=== PATIENT | male | born 1935 | race Caucasian/White ===

== ENCOUNTER 2016-12-26 21:04 | Inpatient (IN) | payer OTHER ==
[~2016-12-26] VITALS: Ht 167.6 cm; Wt 60.8 kg
[~2016-12-26 21:04] MED LIST: ACIDOPHILUS100 M1 PO; ASPIR 8181 M1 PO; CALCARB 600 W-1 EACH PO; CARVEDILOL12.5 MG PO; CARVEDILOL6.25 MG PO; CEFTRIAXON1 GM/50 M1 IV; COLACE10 MG/ML PO; DULCOLAX10 MG PR; DULCOLAX5 MG PO; DUONEB 2.5-0.5 M3 ML IPPB; EFFEXOR XR37.5 MG PO; FERROUS SULFAT325 MG PO; FLEET MINERAL133 ML PR; KLOR-CON M2020 MEQ PO; LIDOCAINE700 MG TD; LISINOPRIL10 MG PO; METHOCARBAMOL500 MG PO; MILK OF MAGN PO; NABI650T PO; OXYCODONE HCL10 MG PO; OXYCODONE HCL5 MG PO; PRAVACHOL80 MG PO; REMERON15 M2 PO; SENNA PLUS TAB1 EACH PO; SODIUM BICARBO325 MG PO; SPIRIVA1 INHALATI IH; TAMSULOSIN HCL0.4 MG PO; TEFLARO600 MG IM; TYLENOL REGULA325 MG PO; VENLAFAXINE HCL75 M3 PO; VENTOLIN HFA18 GM IH; VITAMIN B122500 MCG PO
[2016-12-26 22:35] LABS: BASOPHIL COUNT 0.1 K/uL (0-0.1); EOSINOPHIL (%) 1.2 % (0-5); EOSINOPHIL COUNT 0.1 K/uL (0-0.3); IMMATURE GRANULOCYTE (%) 0.1 % (0.0-0.7); IMMATURE GRANULOCYTE COUNT 0.1 K/uL; LYMPHOCYTE COUNT 0.8 K/uL (1.0-2.8); MCH 29.9 PG (29.0-34.0); MCHC 32.1 G/DL (30.0-36.0); MCV 93.2 FL (86-99); MEAN PLAT.VOLUME 10.6 uM^3 (9.0-12.4); MONOCYTE (%) 8.6 % (3-12); MONOCYTE COUNT 0.7 K/uL (0-0.8); NEUTROPHIL (%) 78.6 % (45-76); NEUTROPHIL COUNT 6.1 K/uL (1.8-6.4); PLATELET COUNT 245 K/uL (156-360); RBC DIS.WIDTH-CV 15.9 % (11.8-14.6); RBC DIS.WIDTH-SD 51.4 % (39-53); RED BLOOD COUNT 3.11 M/uL (4.00-5.50); WHITE BLOOD COUNT 7.7 K/uL (4.1-10.2)
[2016-12-26 22:46] LABS: CHLORIDE 106 mEq/L (99-109); POTASSIUM 4.8 mEq/L (3.7-5.4); SODIUM 136 mEq/L (136-147)
[2016-12-26 22:48] LABS: GLUCOSE 99 mg/dL (70-99)
[2016-12-26 22:49] LABS: ANION GAP 11 MEQ/L (2-14)
[2016-12-26 22:52] LABS: GFR ESTIMATE (CALCULATED) 37 mL/min/
[2016-12-26 22:53] LABS: UREA NITROGEN (BUN) 27 mg/dL (9-23)
[2016-12-26] MEDS ORDERED: REMERON15 M1 PO (23:34)
[2016-12-26] MEDS ORDERED: B-12500 MC1 SL (23:35)
[2016-12-26] MEDS ORDERED: TYLENOL EXTRA500 MG PO (23:36)
[2016-12-26] MEDS ORDERED: SYMBICORT60 INHALAT IH (23:37)
[2016-12-26] MEDS ORDERED: VITAMIN D31000 UNI2 PO (23:37)
[2016-12-27 01:08] LABS: POINT-OF-CARE METER ID UU13113747
[2016-12-27 02:27] VITALS: BP 134/74
[2016-12-27 07:35] VITALS: BP 124/76
[2016-12-27 16:30] VITALS: BP 129/83
[2016-12-27 22:58] VITALS: BP 90/53
[2016-12-28 06:56] LABS: ANION GAP 13 MEQ/L (2-14); CHLORIDE 106 MEQ/L (99-109); GFR ESTIMATE (CALCULATED) 33 mL/min/; GLUCOSE 102 mg/dL (70-99); POTASSIUM 4.3 MEQ/L (3.7-5.4); SAMPLE HEMOLYSIS CHECK 0; SAMPLE ICTERIC CHECK 0; SAMPLE LIPEMIA CHECK 0; SODIUM 138 MEQ/L (136-147); UREA NITROGEN (BUN) 30 mg/dL (9-23)
[2016-12-28 07:48] VITALS: BP 129/76
[2016-12-28 15:27] VITALS: BP 116/72
[2016-12-28 22:00] VITALS: BP 118/74
[2016-12-29 07:16] LABS: ALKALINE PHOSPHATASE 191 IU/L (3-129); ANION GAP 11 MEQ/L (2-14); CHLORIDE 106 MEQ/L (99-109); GFR ESTIMATE (CALCULATED) 33 mL/min/; GLUCOSE 130 mg/dL (70-99); POTASSIUM 4.6 MEQ/L (3.7-5.4); SAMPLE HEMOLYSIS CHECK 0; SAMPLE ICTERIC CHECK 0; SAMPLE LIPEMIA CHECK 0; SODIUM 137 MEQ/L (136-147); TOTAL BILIRUBIN 0.3 MG/DL (0.0-1.0); UREA NITROGEN (BUN) 35 mg/dL (9-23)
[2016-12-29 08:20] LABS: HEMATOCRIT 27.9 % (38.0-50.0); MCH 29.3 PG (29.0-34.0); MCHC 31.5 G/DL (30.0-36.0); MEAN PLAT.VOLUME 11.3 uM^3 (9.0-12.4); PLATELET COUNT 215 K/uL (156-360); RBC DIS.WIDTH-CV 16.5 % (11.8-14.6); RBC DIS.WIDTH-SD 55.7 % (39-53); WHITE BLOOD COUNT 7.2 K/uL (4.1-10.2)
[2016-12-29 09:34] VITALS: BP 144/83
[2016-12-29 15:04] VITALS: BP 121/64
[2016-12-29 22:47] VITALS: BP 114/70
[2016-12-30 07:26] VITALS: BP 121/79
[2016-12-30 07:36] LABS: ANION GAP 12 MEQ/L (2-14); CHLORIDE 107 MEQ/L (99-109); GFR ESTIMATE (CALCULATED) 37 mL/min/; GLUCOSE 143 mg/dL (70-99); MAGNESIUM 2.2 mg/dl (1.3-2.7); POTASSIUM 4.2 MEQ/L (3.7-5.4); SAMPLE HEMOLYSIS CHECK 0; SAMPLE ICTERIC CHECK 0; SAMPLE LIPEMIA CHECK 0; SODIUM 138 MEQ/L (136-147); TOTAL BILIRUBIN 0.3 MG/DL (0.0-1.0); UREA NITROGEN (BUN) 39 mg/dL (9-23); URIC ACID 8.6 mg/dL (3.1-9.2)
[2016-12-30 07:38] LABS: ALKALINE PHOSPHATASE 135 IU/L (3-129)
[2016-12-30 07:56] LABS: EOSINOPHIL (%) 0 % (0-5); IMMATURE GRANULOCYTE (%) 0.2 % (0.0-0.7); LYMPHOCYTE COUNT 0.2 K/uL (1.0-2.8); MCH 30.2 PG (29.0-34.0); MCHC 32.7 G/DL (30.0-36.0); MCV 92.5 FL (86-99); MEAN PLAT.VOLUME 11.5 uM^3 (9.0-12.4); MONOCYTE (%) 4.2 % (3-12); MONOCYTE COUNT 0.4 K/uL (0-0.8); NEUTROPHIL (%) 93.9 % (45-76); NEUTROPHIL COUNT 8.5 K/uL (1.8-6.4); PLATELET COUNT 181 K/uL (156-360); RBC DIS.WIDTH-CV 16.5 % (11.8-14.6); RBC DIS.WIDTH-SD 55.4 % (39-53); RED BLOOD COUNT 2.81 M/uL (4.00-5.50)
[2016-12-30 10:04] LABS: HPCA INDEX 0.12
[2016-12-30 11:23] LABS: UR CREATININE CONCENTRATION 61.4 MG/DL
[2016-12-30 15:56] VITALS: BP 112/58
[2016-12-30 23:08] VITALS: BP 139/77
[2016-12-31 17:02] VITALS: BP 138/85
[2016-12-31 23:31] VITALS: BP 113/72
[2017-01-01 06:59] LABS: HEMATOCRIT 28.6 % (38.0-50.0); MCH 30.2 PG (29.0-34.0); MCHC 32.5 G/DL (30.0-36.0); MCV 92.9 FL (86-99); MEAN PLAT.VOLUME 11.6 uM^3 (9.0-12.4); PLATELET COUNT 201 K/uL (156-360); RBC DIS.WIDTH-CV 16.6 % (11.8-14.6); RBC DIS.WIDTH-SD 55.7 % (39-53); RED BLOOD COUNT 3.08 M/uL (4.00-5.50)
[2017-01-01 07:01] LABS: WHITE BLOOD COUNT 11.9 K/uL (4.1-10.2)
[2017-01-01 07:25] LABS: ALKALINE PHOSPHATASE 103 IU/L (3-129); ANION GAP 8 MEQ/L (2-14); CHLORIDE 109 MEQ/L (99-109); GFR ESTIMATE (CALCULATED) 48 mL/min/; POTASSIUM 4.3 MEQ/L (3.7-5.4); SAMPLE HEMOLYSIS CHECK 0; SAMPLE ICTERIC CHECK 0; SAMPLE LIPEMIA CHECK 0; SODIUM 138 MEQ/L (136-147); UREA NITROGEN (BUN) 38 mg/dL (9-23)
[2017-01-01 07:27] LABS: GLUCOSE 101 mg/dL (70-99); TOTAL BILIRUBIN 0.4 MG/DL (0.0-1.0)
[2017-01-01 07:45] VITALS: BP 110/65
[2017-01-01 16:00] VITALS: BP 134/79
[2017-01-01 18:48] LABS: INTER. NORMALIZED RATIO 1.2; PROTHROMBIN TIME 12.7 (9.2-11.2); PTT 27.1 (25-32)
[2017-01-01 23:26] VITALS: BP 131/67
[2017-01-02 07:33] LABS: ALKALINE PHOSPHATASE 88 IU/L (3-129); ANION GAP 9 MEQ/L (2-14); CHLORIDE 109 MEQ/L (99-109); GFR ESTIMATE (CALCULATED) 45 mL/min/; GLUCOSE 88 mg/dL (70-99); POTASSIUM 4.3 MEQ/L (3.7-5.4); SAMPLE HEMOLYSIS CHECK 0; SAMPLE ICTERIC CHECK 0; SAMPLE LIPEMIA CHECK 0; SODIUM 139 MEQ/L (136-147); TOTAL BILIRUBIN 0.4 MG/DL (0.0-1.0); UREA NITROGEN (BUN) 35 mg/dL (9-23)
[2017-01-02 07:45] LABS: LACTATE DEHYDROGENASE 215 IU/L (20-246)
[2017-01-02 09:11] VITALS: BP 150/90
[2017-01-02 09:17] LABS: TYPE OF FLUID THORACENTESIS
[2017-01-02 09:51] LABS: BODY FLUID RBC'S 1060 /MM^3 (0-100); BODY FLUID WBC'S 153 /MM^3 (0-500); RED CELL AREA COUNTED 2; RED CELL DILUTION 1; WBC AREA COUNTED 8; WBC DILUTION 1; WHITE CELL RAW COUNT 122
[2017-01-02 10:09] LABS: BODY FLUID LDH 58 IU/L; BODY FLUID PROTEIN < 3.0 G/DL
[2017-01-02 10:18] LABS: BODY FLUID EOSINOPHILS 0 % (0-25); MONO RAW COUNT 47; MONONUCLEAR WBC'S 47 %; POLY RAW COUNT 53; POLYNUCLEAR WBC'S 53 % (0-25)
[2017-01-02 16:48] VITALS: BP 146/89
[2017-01-02 23:18] VITALS: BP 130/66
[2017-01-03 07:22] VITALS: BP 135/87
[2017-01-03 09:45] LABS: ALKALINE PHOSPHATASE 93 IU/L (3-129); AMYLASE 43 IU/L (1-118); ANION GAP 11 MEQ/L (2-14); CHLORIDE 103 MEQ/L (99-109); DIRECT BILIRUBIN 0.1 mg/dL (0.0-0.3); GFR ESTIMATE (CALCULATED) 48 mL/min/; GLUCOSE 110 mg/dL (70-99); POTASSIUM 4.7 MEQ/L (3.7-5.4); SAMPLE HEMOLYSIS CHECK 0; SAMPLE ICTERIC CHECK 0; SAMPLE LIPEMIA CHECK 0; SODIUM 136 MEQ/L (136-147); TOTAL BILIRUBIN 0.4 MG/DL (0.0-1.0); UREA NITROGEN (BUN) 39 mg/dL (9-23)
[2017-01-03 15:48] VITALS: BP 129/72
[2017-01-03 15:49] VITALS: BP 129/72
[2017-01-03 22:55] VITALS: BP 90/50
[2017-01-04 06:54] LABS: ALKALINE PHOSPHATASE 74 IU/L (3-129); DIRECT BILIRUBIN 0.1 mg/dL (0.0-0.3); TOTAL BILIRUBIN 0.4 MG/DL (0.0-1.0)
[2017-01-04 07:08] LABS: GLOBULINS 2.2 G/DL (2.3-3.5)
[2017-01-04 07:25] VITALS: BP 117/72
[2017-01-04 16:49] VITALS: BP 117/75
[2017-01-04 22:56] VITALS: BP 103/57
[2017-01-05 07:20] VITALS: BP 121/70
[2017-01-05 07:39] LABS: EOSINOPHIL (%) 0.1 % (0-5); HEMATOCRIT 27.2 % (38.0-50.0); IMMATURE GRANULOCYTE (%) 0.1 % (0.0-0.7); LYMPHOCYTE COUNT 0.7 K/uL (1.0-2.8); MCHC 32.4 G/DL (30.0-36.0); MCV 92.8 FL (86-99); MEAN PLAT.VOLUME 11.4 uM^3 (9.0-12.4); MONOCYTE (%) 9.4 % (3-12); MONOCYTE COUNT 0.7 K/uL (0-0.8); NEUTROPHIL (%) 79.8 % (45-76); NEUTROPHIL COUNT 5.5 K/uL (1.8-6.4); PLATELET COUNT 207 K/uL (156-360); RBC DIS.WIDTH-CV 16.2 % (11.8-14.6); RBC DIS.WIDTH-SD 54.6 % (39-53); RED BLOOD COUNT 2.93 M/uL (4.00-5.50)
[2017-01-05 07:41] LABS: WHITE BLOOD COUNT 6.9 K/uL (4.1-10.2)
[2017-01-05 07:46] LABS: ALKALINE PHOSPHATASE 68 IU/L (3-129); ANION GAP 7 MEQ/L (2-14); CHLORIDE 106 MEQ/L (99-109); GFR ESTIMATE (CALCULATED) 48 mL/min/; GLUCOSE 90 mg/dL (70-99); POTASSIUM 4.3 MEQ/L (3.7-5.4); SAMPLE HEMOLYSIS CHECK 0; SAMPLE ICTERIC CHECK 0; SAMPLE LIPEMIA CHECK 0; SODIUM 137 MEQ/L (136-147); TOTAL BILIRUBIN 0.4 MG/DL (0.0-1.0); UREA NITROGEN (BUN) 30 mg/dL (9-23)
[2017-01-05] MEDS ORDERED: PREDNISONE10 MG PO (08:20)
[2017-01-05 10:56] LABS: HBSG INDEX 0.23
[2017-01-05 10:57] LABS: ANTI-HEPATITIS A VIRUS (IGM) Nonreactive; HAV INDEX 0.56
[2017-01-05 10:58] LABS: ANTI-HEPATITIS B CORE (IGM) Nonreactive; HBC IgM INDEX 0.08
[2017-01-05 14:17] LABS: ALBUMIN 3.02 G/DL (3.6-4.9); ALPHA-1 GLOBULIN 0.19 G/DL (0.15-0.40); ALPHA-1 PERCENT 3.6 %; ALPHA-2 GLOBULIN 0.64 G/DL (0.45-0.85); ALPHA-2 PERCENT 12.4 %; BETA PERCENT 9.9 %; GAMMA PERCENT 16.1 %
[2017-01-06 20:58] LABS: HCV RNA (IU/mL) <15 IU/mL (<15)
[2017-01-07 11:38] LABS: HCV RNA (LOG IU/mL) <1.18 (<1.18)
== END 2017-01-05 17:59 | disposition home health service (06) | DRG 190 ==
LOC: EME 21:04 → EDOF 23:57 → 5EAST 23:57
PROVIDERS: Emergency Medicine; Internal Medicine; Internal Medicine Nephrology; Internal Medicine Pulmonary Disease; Radiology Diagnostic Radiology; Specialist
PROC: 0B9N3ZZ Drainage of Right Pleura, Percutaneous Approach (ICD-10-PCS; principal; 2017-01-02)
DX: J44.1 Chronic obstructive pulmonary disease with (acute) exacerbation (principal); J15.9 Unspecified bacterial pneumonia; N17.0 Acute kidney failure with tubular necrosis; I50.30 Unspecified diastolic (congestive) heart failure; J90 Pleural effusion, not elsewhere classified; D61.9 Aplastic anemia, unspecified; I25.2 Old myocardial infarction; Z96.0 Presence of urogenital implants; G89.29 Other chronic pain; I12.9 Hypertensive chronic kidney disease with stage 1 through stage 4 chronic kidney disease, or unspecified chronic kidney disease; F32.9 Major depressive disorder, single episode, unspecified; F17.210 Nicotine dependence, cigarettes, uncomplicated; G30.9 Alzheimer's disease, unspecified; I25.10 Atherosclerotic heart disease of native coronary artery without angina pectoris; N18.3 Chronic kidney disease, stage 3 (moderate); F02.80 Dementia in other diseases classified elsewhere, unspecified severity, without behavioral disturbance, psychotic disturbance, mood disturbance, and anxiety; R79.89 Other specified abnormal findings of blood chemistry; J44.0 Chronic obstructive pulmonary disease with (acute) lower respiratory infection; K80.20 Calculus of gallbladder without cholecystitis without obstruction
CPT/HCPCS: 71020; 74183; 76705; 76770; 80048; 80053; 80076; 81256 90; 82150; 82390; 82570; 82948; 83605; 83615; 83615 91; 83735; 84100; 84155; 84156; 84157; 84165; 84550; 85025; 85027; 85610; 85730; 86705; 86709; 86803; 87040; 87070; 87075; 87205; 87340; 87522 90; 88108; 89051; 92610 GN; 93005; 94640; 94640 76; 94667; 94668; 94760; 94799; 99202; 99281; 99285; J0456; J0696; J1650; J2060; J2405; J2930; J7030; J7050; J7512

== ENCOUNTER 2017-05-29 10:55 | Day surgery (SDC) | payer OTHER ==
[~2017-05-29] VITALS: Ht 167.6 cm; Wt 54.9 kg
[~2017-05-29 10:55] MED LIST changes: +ATIVAN0.5 MG PO; +B-12500 MC1 SL; +CARVEDILOL3.125 MG PO; +IRON325 M1 PO; +LASIX20 MG PO; +LISINOPRIL2.5 MG PO; +MORPHINE CON20 MG/M1 PO; +PREDNISONE10 MG PO; +PREDNISONE5 MG PO; +REMERON15 M1 PO; +SIMVASTATIN20 MG PO; +SYMBICORT60 INHALAT IH; +TYLENOL EXTRA500 MG PO; +VITAMIN D31000 UNI2 PO
[2017-05-29 11:54] LABS: PROTHROMBIN TIME 10.4 (9.2-11.2); PTT 29.2 (25-32)
[2017-05-29] MEDS ORDERED: ADVAIR HFA120 INHALA IH (11:56)
[2017-05-29 12:12] VITALS: BP 120/61
[2017-05-29 13:40] LABS: METH RESISTANT S AUREUS PCR NEGATIVE (NEGATIVE)
[2017-05-29 13:41] LABS: PROBE CHECK PASS; SPECIMEN PROCESSING CONTROL PASS
[2017-05-29] MEDS ORDERED: COLACE100 MG PO (15:17)
[2017-05-29] MEDS ORDERED: NORCO 5/3251 TABLET PO (15:17)
[2017-05-29 16:15] VITALS: BP 124/62
[2017-05-29 17:17] VITALS: BP 146/77
== END 2017-05-29 17:41 | disposition home or self-care (01) ==
LOC: SDC 10:55
PROVIDERS: Thoracic Surgery (Cardiothoracic Vascular Surgery)
PROC: 0YU50JZ Supplement Right Inguinal Region with Synthetic Substitute, Open Approach (ICD-10-PCS; principal; 2017-05-29)
DX: K40.31 Unilateral inguinal hernia, with obstruction, without gangrene, recurrent (principal); Z85.528 Personal history of other malignant neoplasm of kidney; J44.9 Chronic obstructive pulmonary disease, unspecified; Z87.01 Personal history of pneumonia (recurrent); I35.0 Nonrheumatic aortic (valve) stenosis; I42.9 Cardiomyopathy, unspecified; I50.22 Chronic systolic (congestive) heart failure; Z82.49 Family history of ischemic heart disease and other diseases of the circulatory system
CPT/HCPCS: 71020; 85610; 85730; 87641; 88302; C1781; J0690; J0696; J1170; J2405; J3010; J7050

== ENCOUNTER 2017-07-18 18:22 | Emergency (ER) | payer OTHER ==
[~2017-07-18] VITALS: Ht 167.6 cm; Wt 53.2 kg
[~2017-07-18 18:22] MED LIST changes: +ADVAIR HFA120 INHALA IH; +COLACE100 MG PO; +NORCO 5/3251 TABLET PO
[2017-07-18 19:48] VITALS: BP 115/71
== END 2017-07-18 19:55 | disposition home or self-care (01) ==
LOC: EME 18:22
DX: S61.207A Unspecified open wound of left little finger without damage to nail, initial encounter (principal); W22.8XXA Striking against or struck by other objects, initial encounter; Y93.H9 Activity, other involving exterior property and land maintenance, building and construction
CPT/HCPCS: 73130; 99281; 99283

== ENCOUNTER 2017-09-19 08:42 | Emergency (ER) | payer OTHER ==
[~2017-09-19] VITALS: Ht 157.5 cm; Wt 53.8 kg
[2017-09-19 09:49] LABS: BASOPHIL COUNT 0.1 K/uL (0-0.1); EOSINOPHIL (%) 2.6 % (0-5); EOSINOPHIL COUNT 0.2 K/uL (0-0.3); HEMATOCRIT 34.6 % (38.0-50.0); IMMATURE GRANULOCYTE COUNT 0.1 K/uL; INSTRUMENT ABS NEUTROPHIL CT 4.4 K/uL; LYMPHOCYTE COUNT 0.8 K/uL (1.0-2.8); MCH 30.8 PG (29.0-34.0); MCHC 32.7 G/DL (30.0-36.0); MCV 94.3 FL (86-99); MEAN PLAT.VOLUME 9.8 uM^3 (9.0-12.4); MONOCYTE (%) 11.9 % (3-12); MONOCYTE COUNT 0.7 K/uL (0-0.8); NEUTROPHIL (%) 70.2 % (45-76); NEUTROPHIL COUNT 4.4 K/uL (1.8-6.4); PLATELET COUNT 257 K/uL (156-360); RBC DIS.WIDTH-CV 15.2 % (11.8-14.6); RBC DIS.WIDTH-SD 53.1 % (39-53); RED BLOOD COUNT 3.67 M/uL (4.00-5.50); WHITE BLOOD COUNT 6.2 K/uL (4.1-10.2)
[2017-09-19 10:02] LABS: CHLORIDE 105 mEq/L (99-109); POTASSIUM 4.2 mEq/L (3.7-5.4); SODIUM 139 mEq/L (136-147)
[2017-09-19 10:04] LABS: GLUCOSE 76 mg/dL (70-99)
[2017-09-19 10:05] LABS: ANION GAP 11 MEQ/L (2-14)
[2017-09-19 10:07] LABS: GFR ESTIMATE (CALCULATED) 39 mL/min/
[2017-09-19 10:08] LABS: UREA NITROGEN (BUN) 26 mg/dL (9-23)
[2017-09-19] MEDS ORDERED: PREDNISONE50 MG PO (10:35)
[2017-09-19 10:46] VITALS: BP 107/66
== END 2017-09-19 10:46 | disposition home or self-care (01) ==
LOC: EME 08:42
PROVIDERS: Emergency Medicine
DX: J44.9 Chronic obstructive pulmonary disease, unspecified (principal); J06.9 Acute upper respiratory infection, unspecified; I50.9 Heart failure, unspecified; F17.200 Nicotine dependence, unspecified, uncomplicated
CPT/HCPCS: 71020; 80048; 85025; 99281; 99284

== ENCOUNTER 2018-05-15 21:27 | Emergency (ER) | payer OTHER ==
[~2018-05-15] VITALS: Ht 167.6 cm; Wt 54.7 kg
[~2018-05-15 21:27] MED LIST changes: +PREDNISONE50 MG PO
[2018-05-15 22:21] LABS: HEMATOCRIT 34.1 % (38.0-50.0); HEMOGLOBIN 11.4 G/DL (12.5-16.6); MCH 32.4 PG (29.0-34.0); MCHC 33.4 G/DL (30.0-36.0); MCV 96.9 FL (86-99); PLATELET COUNT 193 K/uL (156-360); RBC DIS.WIDTH-SD 53.6 % (39-53); RED BLOOD COUNT 3.52 M/uL (4.00-5.50); WHITE BLOOD COUNT 7.1 K/uL (4.1-10.2)
[2018-05-15 22:35] LABS: APPEARANCE CLEAR ((CLEAR)); BILIRUBIN NEGATIVE; BLOOD NEGATIVE; COLOR STRAW ((YELLOW)); GLUCOSE (STRIP) NEGATIVE; KETONES NEGATIVE; LEUKOCYTES TRACE; NITRITE NEGATIVE; PROTEIN (STRIP) NEGATIVE; SPECIFIC GRAVITY 1.006 (1.000-1.030); UROBILINOGEN 0.2 MG/DL (0.2-1.0)
[2018-05-15 22:43] LABS: BACTERIA NONE SEEN /HPF; EPITHELIAL CELLS NONE SEEN /HPF; MUCUS NONE SEEN /LPF; RED BLOOD CELLS 0-5 /HPF (0-5); UCUL ADDED? NO; WHITE BLOOD CELLS 0-5 /HPF (0-5)
[2018-05-15 23:25] LABS: ALBUMIN 3.9 g/dL (3.2-4.8); CHLORIDE 103 mEq/L (99-109); POTASSIUM 4.3 mEq/L (3.7-5.4); SODIUM 137 mEq/L (136-147)
[2018-05-15 23:28] LABS: GLUCOSE 95 mg/dL (70-99); TOTAL PROTEIN 6.6 g/dL (6.4-8.3)
[2018-05-15 23:30] LABS: TOTAL BILIRUBIN 0.2 mg/dL (0.0-1.0)
[2018-05-15 23:31] LABS: ALKALINE PHOSPHATASE 72 IU/L (3-129); CREATININE 1.7 mg/dL (0.6-1.3); GFR ESTIMATE (CALCULATED) 41 mL/min/ (58.99-99999)
[2018-05-15 23:32] LABS: UREA NITROGEN (BUN) 31 mg/dL (9-23)
[2018-05-15 23:33] LABS: AST (GOT) 16 IU/L (2-34)
[2018-05-15 23:34] LABS: ALT (GPT) 12 IU/L (3-49)
[2018-05-15 23:35] LABS: LIPASE 57 U/L (1.0-51.0)
[2018-05-15 23:59] VITALS: BP 117/68
== END 2018-05-16 | disposition home or self-care (01) ==
LOC: EME 21:27
DX: R10.31 Right lower quadrant pain (principal); N40.0 Benign prostatic hyperplasia without lower urinary tract symptoms; I50.9 Heart failure, unspecified; N18.9 Chronic kidney disease, unspecified; F17.200 Nicotine dependence, unspecified, uncomplicated; Z88.6 Allergy status to analgesic agent
CPT/HCPCS: 80053; 81003; 83690; 85027; 99281; 99284; J1885

== ENCOUNTER 2018-06-27 08:24 | Emergency (ER) | payer OTHER ==
[~2018-06-27] VITALS: Ht 154.9 cm; Wt 52.9 kg
[2018-06-27 09:03] LABS: HEMATOCRIT 31.7 % (38.0-50.0); HEMOGLOBIN 10.9 G/DL (12.5-16.6); MCHC 34.4 G/DL (30.0-36.0); PLATELET COUNT 358 K/uL (156-360); RBC DIS.WIDTH-CV 14.6 % (11.8-14.6); RBC DIS.WIDTH-SD 49.7 % (39-53); RED BLOOD COUNT 3.41 M/uL (4.00-5.50); WHITE BLOOD COUNT 8.8 K/uL (4.1-10.2)
[2018-06-27 09:12] LABS: CHLORIDE 106 mEq/L (99-109); POTASSIUM 4.7 mEq/L (3.7-5.4); SODIUM 139 mEq/L (136-147)
[2018-06-27 09:13] LABS: GLUCOSE 80 mg/dL (70-99)
[2018-06-27 09:17] LABS: CREATININE 1.9 mg/dL (0.6-1.3); GFR ESTIMATE (CALCULATED) 36 mL/min/ (58.99-99999)
[2018-06-27 09:18] LABS: UREA NITROGEN (BUN) 26 mg/dL (9-23)
[2018-06-27] MEDS ORDERED: PREDNISONE20 MG PO (09:53)
[2018-06-27 10:16] VITALS: BP 117/65
[2018-06-27] MEDS ORDERED: DUONEB 2.5-0.5 M3 ML AEROSOL (22:53)
[2018-06-27] MEDS ORDERED: ZESTRIL2.5 MG PO (22:54)
[2018-06-27] MEDS ORDERED: BREO ELLIPTA I1 EACH IH (22:55)
== END 2018-06-27 09:54 | disposition home or self-care (01) ==
LOC: EME 08:24
PROVIDERS: Nurse Practitioner Family
DX: J44.9 Chronic obstructive pulmonary disease, unspecified (principal); I13.0 Hypertensive heart and chronic kidney disease with heart failure and stage 1 through stage 4 chronic kidney disease, or unspecified chronic kidney disease; I50.9 Heart failure, unspecified; N18.9 Chronic kidney disease, unspecified; F17.200 Nicotine dependence, unspecified, uncomplicated; Z88.6 Allergy status to analgesic agent
CPT/HCPCS: 71046; 80048; 85027; 94640; 99281; 99285; J7512

== ENCOUNTER 2018-06-27 19:27 | Inpatient (IN) | payer OTHER ==
[~2018-06-27] VITALS: Ht 154.9 cm; Wt 54.6 kg
[~2018-06-27 19:27] MED LIST changes: +PREDNISONE20 MG PO
[2018-06-27 20:39] LABS: BASOPHIL (%) 0.1 % (0-1); EOSINOPHIL (%) 0 % (0-5); HEMATOCRIT 29.2 % (38.0-50.0); HEMOGLOBIN 9.8 G/DL (12.5-16.6); LYMPHOCYTE (%) 4.2 % (15-42); LYMPHOCYTE COUNT 0.4 K/uL (1.0-2.8); MCH 31.4 PG (29.0-34.0); MCHC 33.6 G/DL (30.0-36.0); MCV 93.6 FL (86-99); MONOCYTE (%) 6.1 % (3-12); MONOCYTE COUNT 0.6 K/uL (0-0.8); NEUTROPHIL (%) 87.6 % (45-76); NEUTROPHIL COUNT 7.9 K/uL (1.8-6.4); PLATELET COUNT 363 K/uL (156-360); RBC DIS.WIDTH-CV 14.7 % (11.8-14.6); RBC DIS.WIDTH-SD 50.4 % (39-53); RED BLOOD COUNT 3.12 M/uL (4.00-5.50)
[2018-06-27 20:54] LABS: CHLORIDE 104 mEq/L (99-109); POTASSIUM 5.5 mEq/L (3.7-5.4); SODIUM 137 mEq/L (136-147)
[2018-06-27 21:00] LABS: CREATININE 2.1 mg/dL (0.6-1.3); GFR ESTIMATE (CALCULATED) 32 mL/min/ (58.99-99999)
[2018-06-27 21:01] LABS: UREA NITROGEN (BUN) 34 mg/dL (9-23)
[2018-06-27 21:03] LABS: GLUCOSE 128 mg/dL (70-99)
[2018-06-27 21:05] LABS: TROP-I INTERPRETATION NEGATIVE; TROPONIN-I < 0.01 ng/mL (0.0-0.30)
[2018-06-27] MEDS ORDERED: DUONEB 2.5-0.5 M3 ML AEROSOL (22:53)
[2018-06-27] MEDS ORDERED: ZESTRIL2.5 MG PO (22:54)
[2018-06-27] MEDS ORDERED: BREO ELLIPTA I1 EACH IH (22:55)
[2018-06-28 00:53] VITALS: BP 122/54
[2018-06-28 04:33] VITALS: BP 144/64
[2018-06-28 06:50] VITALS: BP 141/65
[2018-06-28 12:17] VITALS: BP 125/62
[2018-06-28 16:11] VITALS: BP 135/85
[2018-06-28 20:49] VITALS: BP 126/60
[2018-06-29 00:23] VITALS: BP 124/67
[2018-06-29 04:19] VITALS: BP 120/58
[2018-06-29 08:07] VITALS: BP 121/60
[2018-06-29 11:32] VITALS: BP 94/53
[2018-06-29] MEDS ORDERED: AUGMENTIN 400-1 EACH PO (12:00)
[2018-06-29 15:56] VITALS: BP 118/59
== END 2018-06-29 17:44 | disposition home or self-care (01) | DRG 191 ==
LOC: EME 19:27 → 2EAST 22:40 → EDOF 22:40 → ENRESERV 22:59 → EDOF 06-28 00:30 → 2EAST 06-28 00:35
PROVIDERS: Emergency Medicine
DX: J44.1 Chronic obstructive pulmonary disease with (acute) exacerbation (principal); I50.20 Unspecified systolic (congestive) heart failure; N18.3 Chronic kidney disease, stage 3 (moderate); I13.0 Hypertensive heart and chronic kidney disease with heart failure and stage 1 through stage 4 chronic kidney disease, or unspecified chronic kidney disease; E78.5 Hyperlipidemia, unspecified; N40.0 Benign prostatic hyperplasia without lower urinary tract symptoms; R09.02 Hypoxemia; I25.10 Atherosclerotic heart disease of native coronary artery without angina pectoris; Z87.891 Personal history of nicotine dependence; Z93.1 Gastrostomy status; I25.5 Ischemic cardiomyopathy; I27.20 Pulmonary hypertension, unspecified; I08.2 Rheumatic disorders of both aortic and tricuspid valves; I35.0 Nonrheumatic aortic (valve) stenosis
CPT/HCPCS: 71046; 78582; 80048 91; 84484; 85025; 93005; 94640; 94799; 99281; 99285; A9540; A9567; J1100; J2543; J7050